=== PATIENT | female | born 1955 | race Caucasian/White ===

== ENCOUNTER 2025-02-15 09:14 | Day surgery (SDC) | payer MEDICARE, SELFPAY ==
--- NOTE | 2025-02-14 18:44 | PM.PREOP ---
Pre-operative Note COVID-19 COVID-19 status: Not tested Interval Note History & Physical reviewed/Exam performed by Physician: Yes Changes to H&P: No
--- NOTE | 2025-02-14 18:45 | P.OP_ITS ---
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 Secondary diagnosis desire for cosmetic lower lid herniated fat pad removal separate procedure. Post-op diagnosis: same Procedure & Clinicians Procedure: Preoperative diagnoses: 1. Bilateral upper lid dermatochalasis 2. Bilateral lower lid ectropion 3. History of 60 lb weight loss with floppy lid syndrome 4. 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 5. Bilateral cataracts 6. History of stage I A melanoma removed from right neck 2023 7. Cosmetic herniated fat pads Postoperative diagnoses: 1. Bilateral upper lid dermatochalasis treated with blepharoplasty 2. Status post ectropion repair 3. Punctal malrotation with punctal stenosis. Procedure: Bilateral upper blepharoplasty for functional symptoms. Bilateral lower lid functional ectropion repair. Bilateral lower lid cosmetic herniated fat pad removal Surgeon: Shelly Saini MD Complications: none Specimen: None Blood loss: Less than 3 mL Anesthesia: Local infiltration with monitored standby. Indications: Bilateral upper lids obstructing superior vision. Patient has significant eyelid droop after 60 lb weight loss and is causing her difficulty driving. She took Wegovy in 2023 but is not currently on this medication. She also has ectropion and closed inferior puncta Preoperative external photographs taken and loss of vision to within 2 mm of marginal light reflex. Functional surgery. Bilateral lower lid laxity with exposure symptoms and malrotated puncta. She also has severe inferior herniated fat pads which she elects to have removed is a cosmetic procedure. Patient presents with excessive irritation and tearing from exposure due to bilateral lower lid laxity malposition the of the lacrimal puncta which were also closed. The patient has failed conservative measures including lubrication and antibiotic ointment and desires surgery to improve these symptoms. Procedure: In the preoperative holding area the amount skin and subcutaneous tissue to be removed was marked with indelible ink. The contours were carefully checked for symmetry and planned procedure discussed with the patient. The patient was taken to the operating room. IV sedation was given. Proparacaine drops were placed in both eyes for comfort. Local infiltration of anesthetic 2.5 cc into each upper lid and lateral canthus bilaterally, consisting of 1% xylocaine with epinephrine, normal saline and 1 cc hyluronidase was placed. This was then supplemented with full strength 2% xylocaine with epinephrine, 0.5% bupivacaine, and 1 cc hyalurondase. The face was prepped in an open manner. Attention was placed to the right upper lid. Using the previous cotton a number 15 Bard-Dion blade was used to incise a skin muscle flap. The flap was lifted and removed. Cautery was applied as needed. Contouring of the muscle belly was also performed. Exploration of the nasal and preoperneurotic fat pads were performed removal and contouring with hemostat and scissors as well as cautery were performed. The lid was then closed with running and interrupted 6 0 Vicryl sutures. Attention was placed to the right lower lid. A punctal dilator was used to enlarge the punctum. It was then probed to the nose. Tenotomy scissors were used to make a 3 snip procedure to enlarge the punctum permanently. Attention was placed to the lateral canthus. A #15 Bard-Dion blade was used to make an incision for 1 cm. The periosteum was exposed. Cautery was used as needed. The inferior canthal tendon was lysed with scissors. A tarsal strip was formed with clearance of the anterior and posterior lamella and any exposed lashes. Minimal shortening was performed. The strip was then transected with 4.0 Mersilene type suture which was placed double-armed through the periosteum and tied with multiple knots at the orbital rim. The outer tarsus and lid was then closed with 6 0 interrupted sutures. The procedure was repeated on the left side in identical fashion. There was minimal bleeding. Cosmetic bilateral herniated fat pad removal. Separate procedure. Consent obtained. Desires to improve cosmesis. Local anesthetic infiltrated in right lower lid with same solution as above. Subciliary incision made with number 15 Bard Dion blade. Blunt dissection was performed to the orbital septum. Nasal ,medial and temporal fat pads were isolated and fat removed. Hemostasis was performed with a clamp and cautery. Once the desired contour was achieved small amount of sub sore incision skin was removed. The lid was then closed with running 6 0 sutures Same procedure was repeated other eye and identical fashion. Maxitrol ophthalmic ointment was placed bilaterally. The patient returned to the recovery room in good condition. Sutures will be removed in the office in approximately 10 days. Same procedure was repeated for the left upper lid and lower lid. The Betadine was removed. Maxitrol ointment was placed to suture line. She returned to recovery room in stable condition. Instructions for postoperative cold packs were reviewed. Shelly Saini MD. Same procedure(s) as scheduled: Yes Surgeon: Shelly Saini Assisted?: No Anesthesia Type: MAC +/- Operative Notes Findings: Droopy lid Prosthetic devices, grafts, tissues, transplants, or devices: 3 cc Applied: none Estimated Blood Loss (mL): 3 Complications: none Post-operative Plan for aftercare: Patient given postop instructions. She will use on an off cold compresses overn ight and for several days. She will take Tylenol if pain increases will give her Tylenol with codeine. She needs to sleep with head of bed at 30?
[2025-02-15 10:01] VITALS: BP 140/82; PULSE 67; RESP 16; TEMP 36.2; O2SAT 100; BMI 26.2
[2025-02-15] MEDS: LACTATED RINGERS 1,000 ML 42 ML IV (10:12)
--- NOTE | 2025-02-15 12:28 | SUR.OPER ---
Supine on eye stretcher gel on donut wrapped in head cover, head on extension cradle. Arms tucked at sides. strap across shoulders. Pillow under knees.
[2025-02-15] MEDS: LIDOCAINE 1% W/EPI 3 ML, SODIUM CHLORIDE 0.9% 2 ML, HYALURONIDASE 150 UNIT INJ (13:13)
[2025-02-15] MEDS: PROPARACAINE 0.5% OPHTH SOL 2 DROPS EYE-BOTH (13:15)
[2025-02-15] MEDS: NEOMYCIN/POLY/DEX OPHTH OINT 1 APPLIC EYE-BOTH (13:18)
[2025-02-15] MEDS: LIDOCAINE 2% W/EPI INJ 10 ML VIAL INJ (13:54)
[2025-02-15 15:00] VITALS: BP 131/60; PULSE 69; RESP 14; TEMP 36.6; O2SAT 100
[2025-02-15 15:13] VITALS: BP 139/64; PULSE 68; RESP 17; TEMP 36.6; O2SAT 99
== END 2025-02-15 15:38 | disposition home or self-care (01) ==
LOC: OR 09:17
PROVIDERS: PCP Student in an Organized Health Care Education/Training Program; Referring Provider Ophthalmology; Visit Provider Ophthalmology
PROC: (CPT 15823; principal; 2025-02-15 11:15)
PROC: (CPT 15823; 2025-02-15 11:15)
PROC: (CPT 15823; 2025-02-15 11:15)
DX: H02.834 Dermatochalasis of left upper eyelid (principal); H02.831 Dermatochalasis of right upper eyelid; H02.102 Unspecified ectropion of right lower eyelid; H02.105 Unspecified ectropion of left lower eyelid; H04.203 Unspecified epiphora, bilateral; H26.9 Unspecified cataract
CPT/HCPCS: 15823; 67917; J2704; J3470

== ENCOUNTER 2025-02-15 09:19 | Day surgery (SDC) | payer SELFPAY | END 2025-02-15 09:20 | disposition home or self-care (01) | LOC: OR 09:20 | PROVIDERS: PCP Student in an Organized Health Care Education/Training Program; Referring Provider Ophthalmology; Visit Provider Ophthalmology | DX: Z41.1 Encounter for cosmetic surgery (principal) | CPT/HCPCS: 15821 ==